=== PATIENT | male | born 1975 | race Caucasian/White ===

== ENCOUNTER → 2020-11-18 13:36 | Outpatient (CLI) | payer OTHER, SELFPAY ==
[2020-11-18 15:16] LABS: Anion Gap 3 (5-15); BUN 14 mg/dL (7-18); BUN/Creat Ratio 13.9 RATIO (10-20); Calcium,Total 9.8 mg/dL (8.5-10.1); Chloride 105 mmol/L (98-107); Creatinine, Serum 1.01 mg/dL (0.70-1.30); EST Glomerular Filtration Rate 84 mL/min (>60); Est Glom Filt Rate - Afr Amer 102 mL/min (>60); Glucose 83 mg/dL (74-106); Potassium 4.1 mmol/L (3.5-5.1); Sodium Level 138 mmol/L (136-145)
== END ==
PROVIDERS: Referring Provider Urology; Visit Provider Urology
DX: N20.2 Calculus of kidney with calculus of ureter (principal)
CPT/HCPCS: 36415; 80048; 82360

== ENCOUNTER → 2020-12-31 14:35 | Outpatient (CLI) | payer OTHER, SELFPAY ==
--- NOTE | 2020-12-31 14:37 | RAD_ITS ---
STUDY: X-RAY - ABDOMEN/PELVIS REASON FOR EXAM: Male, 45 years old. CALCULUS OF KIDNEY TECHNIQUE: Single AP view of the abdomen / pelvis. COMPARISON: None. FINDINGS: Normal visualized lung bases. There is an unremarkable bowel gas pattern. The visualized liver, spleen and kidneys are grossly normal in size and morphology. Normal soft tissue structures. Normal visualized osseous structures. RAD/Abdomen Single View IMPRESSION: Normal x-ray examination of the abdomen and pelvis. Electronically Signed: Lui Becker MD at 15:38 EDT Tel , Service support ,
== END ==
PROVIDERS: Referring Provider Urology; Visit Provider Urology
DX: N20.2 Calculus of kidney with calculus of ureter (principal)
CPT/HCPCS: 74018

== ENCOUNTER → 2021-01-21 14:03 | Outpatient (CLI) | payer OTHER, SELFPAY | PROVIDERS: Referring Provider Urology; Visit Provider Urology | DX: Z03.818 Encounter for observation for suspected exposure to other biological agents ruled out (principal) | CPT/HCPCS: 87426; C9803 ==